=== PATIENT | female | born 1985 | race Two or more races ===

== ENCOUNTER 2022-02-13 10:07 | Observation (INO) | payer MEDICAID ==
[~2022-02-13] VITALS: Ht 157.5 cm; Wt 59.0 kg
== END 2022-02-13 12:15 | disposition home or self-care (01) ==
LOC: 8 EST LDRP 10:07
PROVIDERS: ADMIT Obstetrics & Gynecology; ATTEND Obstetrics & Gynecology
DX: O62.9 Abnormality of forces of labor, unspecified (principal); Z3A.40 40 weeks gestation of pregnancy
CPT/HCPCS: 59025; 76815; 76818; G0378; 99281; G0379

== ENCOUNTER 2022-02-16 11:46 | Inpatient (IN) | payer MEDICAID ==
[~2022-02-16] VITALS: Ht 157.5 cm; Wt 61.2 kg
[2022-02-16] MEDS ORDERED: DEXT 5%/LACTATED RINGERS 1,000 ML IV SCH (14:00)
[2022-02-16] MEDS ORDERED: RHO(D) IMMUNE GLOBULIN 300 MCG/SYR IM ONE (14:00)
[2022-02-16 18:06] LABS: CLARITY URINE CLEAR (CLEAR); COLOR URINE YELLOW (YELLOW); KETONES URINE NEGATIVE (NEGATIVE); LEUKOCYTE ESTERASE URINE 3+ (NEGATIVE); NITRITE URINE NEGATIVE (NEGATIVE); OCCULT BLOOD URINE NEGATIVE (NEGATIVE); PH URINE 6.5 (4.5-8.0); PROTEIN URINE NEGATIVE (NEGATIVE); SPECIFIC GRAVITY URINE 1.011 (1.005-1.030); UROBILINOGEN URINE 0.2 E.U./dL (0.2-1.0)
[2022-02-16 18:12] LABS: BASOPHILS % 0.3 % (0.0-2.0); EOSINOPHILS % 0.8 % (0.0-5.0); HEMATOCRIT. 31.9 % (36.0-48.0); HEMOGLOBIN. 10.9 g/dL (12.0-16.0); LYMPHOCYTES % 19.1 % (20.0-50.0); MEAN CORPUSCULAR HEMOGLOBIN 31.7 pg (28.0-32.0); MEAN CORPUSCULAR VOLUME 92.6 fL (81.0-99.0); MEAN PLATELET VOLUME 10.6 fl (7.4-10.4); MONOCYTES % 9.7 % (2.0-8.0); NEUTROPHILS % 70.1 % (40.0-76.0); PLATELET 180 x1000/uL (130-400); RED BLOOD CELL COUNT 3.44 mill/uL (4.2-5.4); RED CELL DISTRIBUTION WIDTH 13.5 % (11.6-14.6)
[2022-02-16 18:22] LABS: *AMPHETAMINES SCREEN URINE NEGATIVE (NEGATIVE); *BARBITURATES SCREEN URINE NEGATIVE (NEGATIVE); *BENZODIAZEPINES SCREEN URINE NEGATIVE (NEGATIVE); *COCAINE SCREEN URINE NEGATIVE (NEGATIVE); CANNABINOID URINE SCREEN NEGATIVE (NEGATIVE); METHADONE URINE SCREEN NEGATIVE (NEGATIVE); OPIATES URINE SCREEN NEGATIVE (NEGATIVE); PHENCYCLIDINE URINE SCREEN NEGATIVE (NEGATIVE)
[2022-02-16 18:25] LABS: PARTIAL THROMBOPLASTIN TIME 29.9 sec (23.4-31.0); PROTHROMBIN TIME 10.5 sec (9.6-11.0)
[2022-02-16] MEDS ORDERED: PNV1TABL76 MT (18:56)
[2022-02-16] MEDS ORDERED: LIDOCAINE HCL 1% 20ML VIAL (Pyxis) INJ INFIL SCH (19:00)
[2022-02-16] MEDS ORDERED: OXYTOCIN 30 UNITS/500ML NS PMX 500 ML IV SCH (19:00)
[2022-02-16] MEDS ORDERED: NALOXONE HCL 0.4 MG/ML 1ML VIAL IM PRN (19:00)
[2022-02-16] MEDS ORDERED: METHYLERGONOVINE MALEATE 0.2 MG/ML IM PRN (19:00)
[2022-02-16] MEDS: OXYTOCIN 30 UNITS/500ML NS PMX 500 ML IV SCH (21:11)
[2022-02-16] MEDS: LACTATED RINGERS 1,000 ML IV SCH (22:15)
[2022-02-17] MEDS ORDERED: ROPIVACAINE HCL/PF EPIDURAL 200 ML EPI SCH (01:00)
[2022-02-17] MEDS: LACTATED RINGERS 1,000 ML IV SCH ×2 (01:07→04:36)
[2022-02-17] MEDS ORDERED: ROPIVACAINE HCL/PF EPIDURAL 200 ML EPI ONE (01:12)
[2022-02-17] MEDS ORDERED: HEMORRHOIDAL SUPP PR PRN (08:30)
[2022-02-17] MEDS ORDERED: ONDANSETRON HCL 4MG/2ML INJ IV PRN (08:30)
[2022-02-17] MEDS ORDERED: ACETAMINOPHEN WITH CODEINE 300/30MG TABLET PO PRN (08:30)
[2022-02-17] MEDS ORDERED: LANOLIN OINT 7GM TUBE TOP PRN (08:30)
[2022-02-17] MEDS ORDERED: IBUPROFEN 400MG TABLET PO PRN (08:30)
[2022-02-17] MEDS ORDERED: BISACODYL 10MG SUPP PR PRN (08:30)
[2022-02-17] MEDS ORDERED: DIPHENHYDRAMINE 25MG CAPSULE PO PRN (08:30)
[2022-02-17] MEDS ORDERED: RHO(D) IMMUNE GLOBULIN 300 MCG/SYR IM PRN (08:30)
[2022-02-17] MEDS ORDERED: OXYTOCIN 30 UNITS/500ML NS PMX 500 ML IV SCH (08:30)
[2022-02-17] MEDS ORDERED: LIDOCAINE HCL 2%/EPINEPHRINE 1:100,000 20 ML VIAL INFIL ONE (09:00)
[2022-02-17 10:30] VITALS: BP 117/70
[2022-02-17] MEDS: IBUPROFEN 800MG TABLET PO PRN ×2 (10:41→17:53)
[2022-02-17] MEDS: OXYTOCIN 30 UNITS/500ML NS PMX 500 ML IV SCH (10:43)
[2022-02-17 13:25] LABS: CLARITY URINE CLEAR (CLEAR); COLOR URINE YELLOW (YELLOW); KETONES URINE NEGATIVE (NEGATIVE); LEUKOCYTE ESTERASE URINE 2+ (NEGATIVE); NITRITE URINE NEGATIVE (NEGATIVE); OCCULT BLOOD URINE 3+ (NEGATIVE); PH URINE 7.5 (4.5-8.0); PROTEIN URINE 1+ (NEGATIVE); SPECIFIC GRAVITY URINE 1.004 (1.005-1.030); UROBILINOGEN URINE 0.2 E.U./dL (0.2-1.0)
[2022-02-17 16:00] VITALS: BP 92/58
[2022-02-17] MEDS: MAGNESIUM/ALUMINUM HYDROXIDE/SIMETHICONE 30ML UDC PO SCH ×2 (17:54→21:28)
[2022-02-17] MEDS: PRENATAL VIT/FE FUMARATE/FA TABLET PO SCH (17:54)
[2022-02-17] MEDS: SIMETHICONE 80MG TABLET CHEW PO SCH ×2 (17:54→21:28)
[2022-02-17 20:00] VITALS: BP 101/62
[2022-02-17] MEDS ORDERED: DOCUSATE SODIUM 100MG CAPSULE PO SCH (21:00)
[2022-02-18 04:00] VITALS: BP 97/52
[2022-02-18] MEDS ORDERED: TETANUS, DIPHTHERIA, PERTUSSIS VAC/PF 0.5ML (>10YR OLD) IM ONE (06:00)
[2022-02-18] MEDS: IBUPROFEN 800MG TABLET PO PRN (06:28)
[2022-02-18 06:56] LABS: BASOPHILS % 0.1 % (0.0-2.0); EOSINOPHILS % 1.4 % (0.0-5.0); HEMATOCRIT. 27.4 % (36.0-48.0); HEMOGLOBIN. 9.4 g/dL (12.0-16.0); LYMPHOCYTES % 25.2 % (20.0-50.0); MEAN CORPUSCULAR HEMOGLOBIN 32.1 pg (28.0-32.0); MEAN CORPUSCULAR VOLUME 93.3 fL (81.0-99.0); MEAN PLATELET VOLUME 9.7 fl (7.4-10.4); MONOCYTES % 7.2 % (2.0-8.0); NEUTROPHILS % 66.1 % (40.0-76.0); PLATELET 134 x1000/uL (130-400); RED BLOOD CELL COUNT 2.94 mill/uL (4.2-5.4); RED CELL DISTRIBUTION WIDTH 13.8 % (11.6-14.6)
[2022-02-18] MEDS ORDERED: FERROUS SULFATE 325MG TABLET PO SCH (07:30)
[2022-02-18] MEDS: MAGNESIUM/ALUMINUM HYDROXIDE/SIMETHICONE 30ML UDC PO SCH (07:30)
[2022-02-18] MEDS: SIMETHICONE 80MG TABLET CHEW PO SCH (08:00)
[2022-02-18] MEDS ORDERED: METRONIDAZOLE 500MG TABLET PO SCH (08:00)
[2022-02-18 08:06] VITALS: BP 106/68
[2022-02-18] MEDS: PRENATAL VIT/FE FUMARATE/FA TABLET PO SCH (09:12)
== END 2022-02-18 11:55 | disposition home or self-care (01) | DRG 560 ==
LOC: OBSVTOIN 11:46 → 8 EST LDRP 11:46 → 8EST 02-17 10:30
PROVIDERS: ADMIT Obstetrics & Gynecology; ATTEND Obstetrics & Gynecology
PROC: 00HU33Z Insertion of Infusion Device into Spinal Canal, Percutaneous Approach (ICD-10-PCS; principal; 2022-02-16)
PROC: 0HQ9XZZ Repair Perineum Skin, External Approach (ICD-10-PCS; 2022-02-16)
PROC: 3E0R3BZ Introduction of Anesthetic Agent into Spinal Canal, Percutaneous Approach (ICD-10-PCS; 2022-02-16)
PROC: 10D07Z6 Extraction of Products of Conception, Vacuum, Via Natural or Artificial Opening (ICD-10-PCS; 2022-02-16)
DX: O48.0 Post-term pregnancy (principal); Z37.0 Single live birth; A59.9 Trichomoniasis, unspecified; Z3A.40 40 weeks gestation of pregnancy; O70.9 Perineal laceration during delivery, unspecified; O99.892 Other specified diseases and conditions complicating childbirth
CPT/HCPCS: 36415; 80305; 81003; 85025; 86592; 86703; 86762; 86850; 86900; 87340; 87426; 90715; J2795; J3490; J7120; J7121; A4315; J2590